=== PATIENT | female | born 1945 | race Caucasian/White ===

== ENCOUNTER 2018-01-25 15:51 | Emergency (ER) | payer OTHER ==
[~2018-01-25] VITALS: Ht 152.4 cm; Wt 81.6 kg
[2018-01-25 16:04] VITALS: BP 188/95
--- NOTE | 2018-01-25 17:09 | RADIOLOGY REPORT ---
EXAMINATION: XR FOOT, LEFT CLINICAL INFORMATION: Left foot pain and swelling COMPARISON: None TECHNIQUE: AP, lateral, and oblique views of the left foot. FINDINGS: There is diffuse soft tissue swelling of the foot. No radiopaque foreign body. No evidence of acute fracture or malalignment. There are degenerative changes of the midfoot and hindfoot. Small calcaneal enthesophyte at the Achilles insertion. IMPRESSION: Diffuse soft tissue swelling without evidence of acute fracture or malalignment. Mild to moderate degenerative changes are noted.
--- NOTE | 2018-01-25 17:43 | ULTRASOUND REPORT ---
EXAMINATION: US TRIPLEX LOWER EXTREMITY, LEFT CLINICAL INFORMATION: Left lower extremity edema. COMPARISON: None TECHNIQUE: Color-flow triplex imaging with spectral analysis and compression Doppler were performed on the lower extremity. FINDINGS: Respiratory variation, normal compression and augmented flow are noted throughout the lower extremity. The visualized common femoral vein, superficial femoral vein, profunda femoral vein, popliteal vein and midcalf peroneal and posterior tibial venous segments show no evidence of deep venous thrombosis. There is no Lr's cyst. IMPRESSION: Normal triplex scan without evidence of deep venous thrombosis involving the left lower extremity.
--- NOTE | 2018-01-25 17:48 | ED ANKLE/FOOT INJURY COMPLAINT ---
History of Present Illness General Chief Complaint: General Adult Stated Complaint: PT HAS PAIN IN THE LT LEG AND SWOLLEN Source: patient, old records Exam Limitations: no limitations Vital Signs & Intake/Output Vital Signs & Intake/Output Vital Signs Date Time Temp Pulse Resp B/P B/P Pulse O2 O2 Flow FiO2 Mean Ox Delivery Rate 01/25 1604 98.0 86 18 188/95 92 Room Air Allergies Coded Allergies: No Known Allergies (01/25/18) Triage Note: PT TO ER C/C LEFT FOOT PAIN 6/10 X 1 DAY + SWELLING. DENIES INJURY OR TRAUMA. HX OF LEFT HIP REPLACEMENT 20 YEAR AGO WITH INTERMITTENT PAIN TO HIP, STATES HAS BEEN WORSE RECENTLY. MED WITH 600 MG MOTRIN IN TRIAGE PER PROTOCOL. Triage Nurses Notes Reviewed? yes Occurred: just prior to arrival Duration: day(s): (2), constant Timing: recent history Severity: moderate Severity Numbers: 5 Pain/Injury Location: Left: Foot. Method of Injury: unknown No Modifying Factors: none Associated Symptoms: swelling HPI: 72-year-old female history of hypertension and high cholesterol presents complaining of left dorsal foot pain for the past 2 days. She denies any known injury or trauma however states that she has noticed her foot is been swollen. No redness warmth. Pain is only present with weightbearing better at rest. She denies any radiation the pain no numbness or tingling no ankle knee or hip pain. No chest pain shortness of breath fever chills. She is medicated Motrin outside with improvement she has not taken anything otherwise for her pain Patient has history of bilateral hip replacements 20 years ago (Josemanuel Witt) Past History Travel History Traveled to [place] past 21 day No Medical History Any Pertinent Medical History? see below for history Cardiovascular: hypertension, hyperlipidemia Surgical History Surgical History: hip replacement Psychosocial History What is your primary language Bel[place]ian Tobacco Use: Current Daily Use Daily Tobacco Use Amount/Type: => 5 Cigarettes daily Family History Hx Contributory? No (Josemanuel Witt) Review of Systems Review of Systems Constitutional: Reports: see HPI. Comments Review of systems: See HPI, All other systems negative. Constitutional, no chills no fever, HEENT: no sore throat no congestion Cardiovascular: No chest pain , Skin: no rashes, no change in skin Respiratory: No dyspnea no cough no sputum GI: No nausea no vomiting, Muscle skeletal: No joint pain, no back pain, no neck pain, Neurologic: , no headache Heme/endocrine: No bruising (Josemanuel Witt) Physical Exam Physical Exam General Appearance: well developed/nourished, alert, awake Leg/Knee/Thigh Left: normal range of motion Comments: Well-developed well-nourished patient in no apparent distress. HEENT: Atraumatic, extraocular motion intact Neck: Supple, FROM Back: FROM Respiratory: No respiratory distress. Patient speaking in full complete sentences. Upper Extremities: full range of motion Hip/Pelvis: Atraumatic/Stable. FROM. No pain with pelvic compression Knee: Atraumatic/stable. FROM. No joint swelling, no effusion. No laxity. Negative mindy/anterior drawer test. No pain with ROM Leg: Atraumatic. Nontender. No edema, 5 out of 5 strength in the lower extremity, normal dorsiflexion of great toe bilaterally, gross sensation is intact, patellar tendon reflex 2+ bilaterally. Ankle/Foot: No ecchymosis no overlying erythema or warmth, Atraumatic/stable. Skin intact. FROM. No swelling, no effusion. No laxity on exam Pulses: Normal/equal DP/PT pulses bilaterally. Brisk cap refill Neuro: awake, alert, and oriented to person, place and time. There were no obvious focal neurologic abnormalities. Skin: Warm & dry;No appreciable rash on exposed skin Psych: Mood affect normal, normal memory normal judgment. (Josemanuel Witt) Progress Differential Diagnosis: DVT, cellulitis, gout, fracture, dislocation, sprain, contusion Plan of Care: X-ray and ultrasound were ordered from triage. Case discussed with Dr. Hillman agrees with plan The patient is able to bear weight in the room. I discussed with the patient at length all of their results. I had an extensive conversation regarding need for close follow up with their primary care physician/orthopedist this week as well as return precautions. I answered all of their questions, they feel comfortable with the plan and follow-up care. Diagnostic Imaging: Viewed by Me: Radiology Read, Ultrasound. Discussed w/RAD: Radiology Read, Ultrasound. Radiology Impression: PATIENT: FERNANDO GARDUNO PRESENT AGE: 72 PATIENT ACCOUNT NO: [id number] : 44 LOCATION: [facility] ORDERING PHYSICIAN: Josemanuel GARCIA SERVICE DATE: 01/25/18 EXAM TYPE: US - US- UNILATERAL VENOUS DOPPLER EXAMINATION: US TRIPLEX LOWER EXTREMITY, LEFT CLINICAL INFORMATION: Left lower extremity edema. COMPARISON: None TECHNIQUE: Color-flow triplex imaging with spectral analysis and compression Doppler were performed on the lower extremity. FINDINGS: Respiratory variation, normal compression and augmented flow are noted throughout the lower extremity. The visualized common femoral vein, superficial femoral vein, profunda femoral vein, popliteal vein and midcalf peroneal and posterior tibial venous segments show no evidence of deep venous thrombosis. There is no Lr's cyst. IMPRESSION: Normal triplex scan without evidence of deep venous thrombosis involving the left lower extremity. DICTATED BY: Staci Osborn MD DATE/TIME DICTATED:01/25/181738 [employer] OVER[employer] CRANE:W[facility]AMS DATE/TIME TRANSCRIBED:01/25/181738 CONFIDENTIAL, DO NOT COPY WITHOUT APPROPRIATE AUTHORIZATION. <Electronically signed in Other Vendor System> SIGNED BY: Staci Osborn MD 01/25/18 1743, ATIENT: FERNANDO GARDUNO PRESENT AGE: 72 PATIENT ACCOUNT NO: [id number] : 44 LOCATION: [facility] ORDERING PHYSICIAN: Pancho Hillman DO (TBS) SERVICE DATE: 01/25/18 EXAM TYPE: RAD - XRY-FOOT COMPLETE, LEFT EXAMINATION : XR FOOT, LEFT CLINICAL INFORMATION: Left foot pain and swelling COMPARISON: None TECHNIQUE: AP, lateral, and oblique views of the left foot. FINDINGS: There is diffuse soft tissue swelling of the foot. No radiopaque foreign body. No evidence of acute fracture or malalignment. There are degenerative changes of the midfoot and hindfoot. Small calcaneal enthesophyte at the Achilles insertion. IMPRESSION: Diffuse soft tissue swelling without evidence of acute fracture or malalignment. Mild to moderate degenerative changes are noted. DICTATED BY: Jovita Collazo MD DATE/TIME DICTATED:01/25/181700 [employer] LO[employer] OVER[employer] CRANE:WILLIAMS DATE/TIME TRANSCRIBED:01/25/181700 CONFIDENTIAL, DO NOT COPY WITHOUT APPROPRIATE AUTHORIZATION. <Electronically signed in Other Vendor System> SIGNED BY: Jovita Collazo MD 01/25/181708 (Josemanuel Witt) Departure Departure Time of Disposition: 1755 Disposition: HOME OR SELF CARE Condition: Stable Clinical Impression Primary Impression: Arthritis of foot Referrals: Nathaly AGUILAR,Adam Norwood MD,uJli Jaquez (PCP/Family) Additional Instructions: Rest ice and Tylenol Motrin for pain. Keep leg elevated. Follow-up with her primary care physician this week or orthopedist Dr. Andersen. Return to the emergency room at anytime sooner with any concerns Departure Forms: Customer Survey General Discharge Information (Juan GARCIA,Josemanuel) PA/EXTRA GANG SUPERVISOR Co-Sign Statement Statement: ED Attending supervision documentation- [X] I saw and evaluated the patient. I have also reviewed all the pertinent lab results and diagnostic results. I agree with the findings and the plan of care as documented in the PA's/EXTRA GANG SUPERVISOR's documentation. [] I have reviewed the ED Record and agree with the PA's/EXTRA GANG SUPERVISOR's documentation. [] Additions or exceptions (if any) to the PAs/EXTRA GANG SUPERVISOR's note and plan are summarized below: [] (Pancho Hillman DO
== END 2018-01-25 17:56 ==
LOC: ERH 15:51
DX: M19.072 Primary osteoarthritis, left ankle and foot (principal); M79.605 Pain in left leg
CPT/HCPCS: 73630-LT; J0131